=== PATIENT | female | born 1990 | race Caucasian/White ===

== ENCOUNTER → 2016-05-19 | Outpatient (CLI) | payer SELFPAY | LOC: MW.CHOBGYN 10:08 | PROVIDERS: ATTEND Obstetrics & Gynecology | DX: L29.8 Other pruritus (principal) | CPT/HCPCS: 87480; 87510; 87660 ==

== ENCOUNTER → 2016-05-28 | Outpatient (CLI) | payer SELFPAY | LOC: MW.CHOBGYN 14:18 | PROVIDERS: ATTEND Advanced Practice Midwife | DX: Z34.90 Encounter for supervision of normal pregnancy, unspecified, unspecified trimester (principal); L29.8 Other pruritus | CPT/HCPCS: 36415; 82950; 85027; 86850 ==

== ENCOUNTER → 2016-06-15 | Outpatient (CLI) | payer OTHER ==
--- NOTE | 2016-06-16 10:13 | US ---
EXAMINATION: Transabdominal obstetric ultrasound HISTORY: Supervision of normal COMPARISON: None TECHNIQUE: Grayscale, color Doppler, and spectral Doppler images obtained. FINDINGS: There is a single live intrauterine in a cephalic position. The heart rate is 153 bpm. Amniotic fluid index is normal. The cervical length measures at least 3 cm. The biparie selin diameter is 8.3 cm, head circumference is 29.6 cm, the abdominal circumference is 27.9 cm, and t he femoral length is 6.3 cm. This gives an estimated gestational age at 32 weeks and 6 days with an estimated date of delivery at 08/04/2016. weight is 1960 g. Overall the fetus is within the 46t h percentile. IMPRESSION: Single live intrauterine in the cephalic position.
== END ==
LOC: MW.US 14:53
PROVIDERS: ATTEND Advanced Practice Midwife
DX: Z34.03 Encounter for supervision of normal first pregnancy, third trimester (principal)
CPT/HCPCS: 76815-26; 76816

== ENCOUNTER → 2016-06-18 | Outpatient (CLI) | payer MEDICAID | LOC: MW.CHOBGYN 13:53 | PROVIDERS: ATTEND Advanced Practice Midwife | DX: O99.283 Endocrine, nutritional and metabolic diseases complicating pregnancy, third trimester (principal); E03.9 Hypothyroidism, unspecified | CPT/HCPCS: 36415; 80305; 81003; 84439; 84443 ==

== ENCOUNTER 2016-07-23 16:13 | Inpatient (IN) | payer OTHER, MEDICAID ==
[2016-07-23] MEDS ORDERED: Lactated Ringers 1,000 ML IV ONE (17:11)
[2016-07-23] MEDS ORDERED: Terbutaline 1 MG/ML SDV SUBCUT ONE (19:14)
[2016-07-23] MEDS: Lactated Ringers 1,000 ML IV SCH (23:29)
--- NOTE | 2016-07-23 23:30 | PCM.PREANE ---
Preanesthetic Assessment - Anesthesia/Transfusion/Family Hx Anesthesia History: Prior Anesthesia Without Reaction Family History of Anesthesia Reaction: No Transfusion History: No Prior Transfusion(s) - Review of Systems General: No Symptoms Pulmonary: No Symptoms Cardiovascular: No Symptoms Gastrointestinal: No symptoms Neurological: No Symptoms Other: Reports: None - Physical Assessment NPO Status Date: 07/24/16 NPO Status Time: 01:28 (cl liquids now) Height: 1.73 m Weight: 125.191 kg ASA Class: 3 Mental Status: Alert & Oriented x3 Airway Class: Mallampati = 2 Dentition: Reports: Normal Dentition Thyro-Mental Finger Breadths: 3 Mouth Opening Finger Breadths: 3 ROM/Head Extension: Full Lungs: Clear to auscultation, Normal respiratory effort Cardiovascular: Regular Rate, Regular Rhythm - Lab Values: Laboratory Last Values Urine Color YELLOW 07/23/16 16:20 Urine Appearance CLEAR 07/23/16 16:20 Urine pH 6.5 (5.0-8.0) 07/23/16 16:20 Ur Specific [place] 1.020 (1.001-1.035) 07/23/16 16:20 Urine Protein NEGATIVE mg/dL (NEGATIVE) 07/23/16 16:20 Urine Glucose (UA) NEGATIVE mg/dL (NEGATIVE) 07/23/16 16:20 Urine Ketones TRACE mg/dL (NEGATIVE) H 07/23/16 16:20 Urine Occult Blood NEGATIVE (NEGATIVE) 07/23/16 16:20 Urine Nitrite NEGATIVE (NEGATIVE) 07/23/16 16:20 Urine Bilirubin SMALL (NEGATIVE) H 07/23/16 16:20 Urine Ictotest NEGATIVE 07/23/16 16:20 Urine Urobilinogen 0.2 EU/dL (<2.0) 07/23/16 16:20 Ur Leukocyte Esterase NEGATIVE (NEGATIVE) 07/23/16 16:20 Urine RBC 0-1 (0-2/HPF) 07/23/16 16:20 Urine WBC 0-3 (0-5/HPF) 07/23/16 16:20 Ur Epithelial Cells FEW (NONE-FEW) 07/23/16 16:20 Urine Bacteria FEW (NEGATIVE) 07/23/16 16:20 - Allergies Allergies/Adverse Reactions: Allergies Allergy/AdvReac Type Severity Reaction Status Date / Time No Known Allergies Allergy Verified 05/31/15 20:38 - Blood Blood Available: Yes Product(s) Available: PRBC - Acknowledgements Anesthesia Type Planned: Epidural Pt an Appropriate Candidate for the Planned Anesthesia: Yes Alternatives and Risks of Anesthesia Discussed w Pt/Guardian: Yes Pt/Guardian Understands and Agrees with Anesthesia Plan: Yes PreAnesthesia Questionnaire Gastrointestinal History: Reports: Cholelithiasis, GERD 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: Other Musculoskeletal History: History of thoracic outlet syndrome, right upper rib removed about 2 yrs ago Endocrine/Metabolic History: Reports: Hypothyroidism Other Endocrine/Metabolic History: 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, no changes in thyroid medication since beginning of this - Infectious Disease History Infectious Disease History: Reports: Chicken Pox - Past Surgical History HEENT Surgical History: Reports: Naso-Sinus Surgery GI Surgical History: Reports: Cholecystectomy Endocrine Surgical History: Reports: Thyroidectomy Musculoskeletal Surgical History: Reports: Shoulder Surgery - SUBSTANCE USE Smoking Status *Q: Current Every Day Smoker Tobacco Use Within Last Twelve Months: Cigarettes Second Hand Smoke Exposure: Yes Recreational Drug Use History: No - CURRENT (IN HOUSE) MEDS Current Meds: Current Medications Discontinued Medications Lactated Ringer's (Ringers, Lactated) 1,000 mls @ 500 mls/hr IV .BOLUS ONE Stop: 07/23/16 19:10 Last Admin: 07/23/16 17:26 Dose: 500 mls/hr Terbutaline Sulfate (Brethine) 0.25 mg SUBCUT ONETIME ONE Stop: 07/23/16 19:15 Last Admin: 07/23/16 19:23 Dose: 0.25 mg - Free Text/Narrative Note: Labor Analgesia/Epidural Procedure start date: 07/25/16 time:57 Attending provider aware Chart reviewed Permit signed Labs reviewed VS/ FHR reviewed Pt identified/ID band Pt assessed Risks/Benefits discussed and accepted Monitors in place (BP, HR, SPO2) Patient, Site, Procedure Verification, Pause. Pain "6/10" Fluid bolus infused (fluid type and amount): 1500 ml LR infused with ongoing infusion Position: Sitting @0100 Prep: Betadine X 3 Sterile Drape Intradermal Wheal: 3 ml 1% Lidocaine Regional placement level: L4-5 Needle: 17 g Tuohy Approach: Midline Technique: KIET glass syringe w 3 ml Sterile water KIET needle depth: 8 cm Paresthesia: None Fluid Obtained: None Catheter insertion time:104 Catheter depth at skin: 20 cm Test Dose Time: 104 RX: 3 ml 1.5% lidocaine with 1:200,000 epi Response: Negative Loading dose Time:[id number] RX: 100 mcg fentanyl followed by 10 ml 0.2% ropivacaine in 2-3 ml increments over 10 minutes Pt position: semi fowlers with JOHN Continuous infusion Start Time: 119 RX: 100 ml 0.2% ropivacaine with 2 mcg/ml fentanyl Continuous infusion rate: 9 ml/hr ICEBOX WORKER bolus option: 5 ml every 15 min Pt response Post procedure pain level: "0/10" VS and FHR monitored in unit post placement (See OB traceview for documentation. ) Procedure end date: 07/25/16 time: 014
[2016-07-23] MEDS ORDERED: Water For Irrigation,Sterile 1,000 ML Container IRR PRN (23:31)
[2016-07-23] MEDS ORDERED: Sodium Chloride 0.9% 10 ML Syringe FLUSH PRN (23:31)
[2016-07-23] MEDS ORDERED: Butorphanol 1 MG/ML SDV IVPUSH PRN (23:31)
[2016-07-23] MEDS ORDERED: Sodium Chloride 0.9% 2.5 ML Syringe FLUSH PRN (23:31)
[2016-07-23] MEDS ORDERED: Methylergonovine 0.2 MG/1 ML Amp IM PRN (23:31)
[2016-07-23] MEDS ORDERED: Misoprostol 200 MCG Tab PO PRN (23:31)
[2016-07-23] MEDS ORDERED: Nalbuphine 10 MG/1 ML Vial IVPUSH PRN (23:31)
[2016-07-23] MEDS ORDERED: Lidocaine 1% 50 ML MDV INJECT PRN (23:31)
[2016-07-23] MEDS ORDERED: Carboprost Tromethamine 250 MCG/1 ML Amp IM PRN (23:31)
[2016-07-23] MEDS ORDERED: Oxytocin/Lactated Ringers 30 UNIT/500 ML BAG IV SCH (23:45)
--- NOTE | 2016-07-24 | PCM.LDHP ---
L&D History of Present Illness - General Date of Service: 07/23/16 Admit Problem/Dx: Patient Status Order with Admit Dx/Problem 07/23/16 16:39 Patient Status [ADT] Routine 07/23/16 23:31 Patient Status [ADT] Routine Admission Diagnosis/Problem Admission Diagnosis/Problem Source of Information: Patient History Limitations: Reports: No Limitations - History of Present Illness Improves with: Reports: None Worsens with: Reports: None Associated Symptoms: Reports: N - Related Data Allergies/Adverse Reactions: Allergies Allergy/AdvReac Type Severity Reaction Status Date / Time No Known Allergies Allergy Verified 05/31/15 20:38 Past Medical History Gastrointestinal History: Reports: Cholelithiasis, GERD 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: Endocrine/Metabolic History: Reports: Hypothyroidism Other Endocrine/Metabolic History: 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 - Infectious Disease History Infectious Disease History: Reports: Chicken Pox - Past Surgical History HEENT Surgical History: Reports: Naso-Sinus Surgery GI Surgical History: Reports: Cholecystectomy Endocrine Surgical History: Reports: Thyroidectomy Musculoskeletal Surgical History: Reports: Shoulder Surgery Social & Family History - Family History GI: Reports: GERD Neurological: Reports: CVA Endocrine/Metabolic: Reports: Hypothyroidism Other Endocrine/Metabolic Family History: mother thyroidectomy for graves disease Oncologic: Reports: Renal - Tobacco Use Smoking Status *Q: Current Every Day Smoker Years of Tobacco use: 8 Packs/Tins Daily: 0.5 Second Hand Smoke Exposure: Yes - Recreational Drug Use Recreational Drug Use: No H&P Review of Systems - Review of Systems: Review Of Systems: See Below General: Reports: No Symptoms HEENT: Reports: No Symptoms Pulmonary: Reports: No Symptoms Cardiovascular: Reports: No Symptoms Gastrointestinal: Reports: No Symptoms Genitourinary: Reports: No Symptoms Musculoskeletal: Reports: No Symptoms Skin: Reports: No Symptoms Psychiatric: Reports: No Symptoms Neurological: Reports: No Symptoms Hematologic/Lymphatic: Reports: No Symptoms Immunologic: Reports: No Symptoms L&D Exam - Exam Exam: See Below - Vital Signs Weight: 125.191 kg - OB Specific Fundal Height In cm: 37 Contraction Intensity: Mild to Moderate Movement: Active Presentation: Vertex - Garrett Score Garrett Score Consistency: Soft Garrett Score Effacement: 51-70% Garrett Score Dilation: > 5 cm Garrett Score 's Station: -1 ,0 - Patient Data Lab Results Last 24 hrs: Laboratory Results - last 24 hr 07/23/16 Range/Units 16:20 Urine Color YELLOW Urine Appearance CLEAR Urine pH 6.5 (5.0-8.0) Ur Specific [place] 1.020 (1.001-1.035) Urine Protein NEGATIVE (NEGATIVE) mg/dL Urine Glucose (UA) NEGATIVE (NEGATIVE) mg/dL Urine Ketones TRACE H (NEGATIVE) mg/dL Urine Occult Blood NEGATIVE (NEGATIVE) Urine Nitrite NEGATIVE (NEGATIVE) Urine Bilirubin SMALL H (NEGATIVE) Urine Ictotest NEGATIVE Urine Urobilinogen 0.2 (<2.0) EU/dL Ur Leukocyte Esterase NEGATIVE (NEGATIVE) Urine RBC 0-1 (0-2/HPF) Urine WBC 0-3 (0-5/HPF) Ur Epithelial Cells FEW (NONE-FEW) Urine Bacteria FEW (NEGATIVE) Problem List Initiated/Reviewed/Updated: Yes Orders Last 24hrs: Active Orders 24 hr Category Date Time Status Patient Status [ADT] Routine ADT 07/23/16 16:39 Active Patient Status [ADT] Routine ADT 07/23/16 23:31 Active Heart Tones [RC] CONTINUOUS Care 07/23/16 23:31 Active Non Stress Test [RC] PER UNIT ROUTINE Care 07/23/16 16:39 Active Non Stress Test [RC] PER UNIT ROUTINE Care 07/23/16 23:31 Active May Shower [RC] ASDIRECTED Care 07/23/16 23:31 Active Notify Provider [RC] PRN Care 07/23/16 23:31 Active Up ad Hillary [RC] ASDIRECTED Care 07/23/16 16:39 Active Up ad Hillary [RC] ASDIRECTED Care 07/23/16 23:31 Active Vaginal Exam [RC] Click To Edit Care 07/23/16 16:39 Active Vaginal Exam [RC] PRN Care 07/23/16 23:31 Active Vital Signs [RC] PER UNIT ROUTINE Care 07/23/16 16:39 Active Vital Signs [RC] PER UNIT ROUTINE Care 07/23/16 23:31 Active CBC W/O DIFF,HEMOGRAM [HEME] Routine Lab 07/23/16 23:31 Ordered TYPE AND SCREEN [BBK] Routine Lab 07/23/16 23:31 Ordered Butorphanol [Stadol] Med 07/23/16 23:31 Active 1 mg IVPUSH Q1H PRN Carboprost Tromethamine [Hemabate DS] Med 07/23/16 23:31 Active 250 mcg IM ASDIRECTED PRN Lactated Ringers [Ringers, Lactated] 1,000 ml Med 07/23/16 23:45 Active IV ASDIRECTED Lidocaine 1% [Xylocaine 1%] Med 07/23/16 23:31 Active 50 ml INJECT .ONCE PRN Methylergonovine [Methergine] Med 07/23/16 23:31 Active 0.2 mg IM ASDIRECTED PRN Misoprostol [Cytotec] Med 07/23/16 23:31 Active 200 mcg PO .ONCE PRN Nalbuphine [Nubain] Med 07/23/16 23:31 Active 10 mg IVPUSH Q1H PRN Oxytocin/Lactated Ringers [Pitocin in LR 30 Units/500 Med 07/23/16 23:45 Active ML] 30 unit in 500 ml IV TITRATE Sodium Chloride 0.9% [Saline Flush] Med 07/23/16 23:31 Active 10 ml FLUSH ASDIRECTED PRN Sodium Chloride 0.9% [Saline Flush] Med 07/23/16 23:31 Active 2.5 ml FLUSH ASDIRECTED PRN Water For Irrigation,Sterile [Sterile Water for Med 07/23/16 23:31 Active Irrigation] 1,000 ml IRR ASDIRECTED PRN Scalp Electrode [WOMSER] Per Unit Routine Oth 07/23/16 23:31 Ordered Peripheral IV Insertion Adult [OM.PC] Routine Oth 07/23/16 23:31 Ordered Resuscitation Status Routine Resus Stat 07/23/16 16:39 Ordered Medication Orders Butorphanol Tartrate (Stadol) 1 mg IVPUSH Q1H PRN PRN Reason: Pain Carboprost Tromethamine (Hemabate Ds) 250 mcg IM ASDIRECTED PRN PRN Reason: Post Hemorrhage Lactated Ringer's (Ringers, Lactated) 1,000 mls @ 150 mls/hr IV ASDIRECTED JADE Oxytocin/Lactated Ringer's (Pitocin In Lr 30 Units/500 Ml) 30 unit in 500 mls @ 999 mls/hr IV TITRATE JADE PRN Reason: 999 MUNITS/MIN Stop: 07/24/16 00:16 Lidocaine HCl (Xylocaine 1%) 50 ml INJECT .ONCE PRN PRN Reason: Laceration repair Methylergonovine Maleate (Methergine) 0.2 mg IM ASDIRECTED PRN PRN Reason: Post Hemorrhage Misoprostol (Cytotec) 200 mcg PO .ONCE PRN PRN Reason: Post Hemorrhage Nalbuphine HCl (Nubain) 10 mg IVPUSH Q1H PRN PRN Reason: Pain (severe 7-10) Stop: 07/24/16 01:32 Sodium Chloride (Saline Flush) 10 ml FLUSH ASDIRECTED PRN PRN Reason: Keep Vein Open Sodium Chloride (Saline Flush) 2.5 ml FLUSH ASDIRECTED PRN PRN Reason: Keep Vein Open Sterile Water (Sterile Water For Irrigation) 1,000 ml IRR ASDIRECTED PRN PRN Reason: delivery Assessment/Plan Comment:: IUP 37 wks in early labor
[2016-07-24] MEDS: Lactated Ringers 1,000 ML IV SCH ×3 (00:34→06:03)
[2016-07-24] MEDS ORDERED: Ropivacaine 0.2% 2 MG/ML 20 ML SDV ONE (00:51)
[2016-07-24] MEDS ORDERED: fentaNYL 100 MCG/2 ML SDV ONE (00:51)
--- NOTE | 2016-07-24 08:54 | PCM.PNLD ---
Labor Progress Note - VS & Meds Active Medications: Current Medications Butorphanol Tartrate (Stadol) 1 mg IVPUSH Q1H PRN PRN Reason: Pain Carboprost Tromethamine (Hemabate Ds) 250 mcg IM ASDIRECTED PRN PRN Reason: Post Hemorrhage Lactated Ringer's (Ringers, Lactated) 1,000 mls @ 150 mls/hr IV ASDIRECTED [facility] Last Admin: 07/24/16 06:03 Dose: 125 mls/hr Lidocaine HCl (Xylocaine 1%) 50 ml INJECT .ONCE PRN PRN Reason: Laceration repair Methylergonovine Maleate (Methergine) 0.2 mg IM ASDIRECTED PRN PRN Reason: Post Hemorrhage Misoprostol (Cytotec) 200 mcg PO .ONCE PRN PRN Reason: Post Hemorrhage Sodium Chloride (Saline Flush) 10 ml FLUSH ASDIRECTED PRN PRN Reason: Keep Vein Open Sodium Chloride (Saline Flush) 2.5 ml FLUSH ASDIRECTED PRN PRN Reason: Keep Vein Open Sterile Water (Sterile Water For Irrigation) 1,000 ml IRR ASDIRECTED PRN PRN Reason: delivery Discontinued Medications Fentanyl (Sublimaze) Confirm Administered Dose 100 mcg .ROUTE .STK-MED ONE Stop: 07/24/16 00:52 Lactated Ringer's (Ringers, Lactated) 1,000 mls @ 500 mls/hr IV .BOLUS ONE Stop: 07/23/16 19:10 Last Admin: 07/23/16 17:26 Dose: 500 mls/hr Oxytocin/Lactated Ringer's (Pitocin In Lr 30 Units/500 Ml) 30 unit in 500 mls @ 999 mls/hr IV TITRATE [facility] PRN Reason: 999 MUNITS/MIN Stop: 07/24/16 00:16 Ropivacaine/Fentanyl/NS (Fentanyl 2 Mcg-Ropiv 0.2%-Ns) Confirm Administered Dose 100 mls @ as directed .ROUTE .STK-MED ONE Stop: 07/24/16 00:52 Nalbuphine HCl (Nubain) 10 mg IVPUSH Q1H PRN PRN Reason: Pain (severe 7-10) Stop: 07/24/16 01:32 Ropivacaine (Naropin 0.2%) Confirm Administered Dose 20 ml .ROUTE .STK-MED ONE Stop: 07/24/16 00:52 Terbutaline Sulfate (Brethine) 0.25 mg SUBCUT ONETIME ONE Stop: 07/23/16 19:15 Last Admin: 07/23/16 19:23 Dose: 0.25 mg - Uterine Contractions Contraction Intensity: Mild to Moderate Uterine Resting Tone: Soft - Monitoring Monitor Mode: External Ultrasound Heart Rate (FHR) Variability: Moderate (6-25 bmp) Accelerations: Present, 15x15 Decelerations: None Strip Review: Category I - Vaginal Exam Dilation (cm): 5-6 Effacement (Percent): 90 Station: -3 Cervical Position: Anterior Sterile Vaginal Exam Performed By: Vernon Whiting - Labor Progress (Free Text) Labor Progress: AEOM by me. we will watch contractions and re do Vaginal exam if there is no segnifect change we will start the pt on Pitocin as per protocol.
[2016-07-24] MEDS ORDERED: Oxytocin/Lactated Ringers 30 UNIT/500 ML BAG ONE (10:13)
[2016-07-24] MEDS ORDERED: Ropivacaine HCl/PF 100 ML ONE (10:51)
[2016-07-24] MEDS ORDERED: Lanolin 100% Cream 7 GM Tube TOP PRN (11:23)
[2016-07-24] MEDS ORDERED: Ibuprofen 400 MG Tab PO PRN (11:23)
[2016-07-24] MEDS ORDERED: Benzocaine/Menthol 20%-0.5% Spray 78 GM Cannister TOP PRN (11:23)
[2016-07-24] MEDS ORDERED: Bisacodyl 10 MG Supp RECTAL PRN (11:23)
[2016-07-24] MEDS ORDERED: Acetaminophen 500 MG Tab PO PRN ×2 (11:23)
[2016-07-24] MEDS ORDERED: Witch Hazel Medicated Pads 40/Jar TOP PRN (11:23)
[2016-07-24] MEDS ORDERED: Docusate Sodium 100 MG Cap PO PRN (11:23)
[2016-07-24] MEDS: oxyCODONE 5 MG Tab PO PRN ×2 (12:30→19:37)
--- NOTE | 2016-07-24 14:38 | OR ---
SURGEON: Vernon Whiting MD DATE OF PROCEDURE: 07/24/2016 Ms. Louise is 25 years old patient. She is para 1-0-0-1. She is 37 weeks today. She is followed up in our clinic primarily by our nurse senior executive compensation analyst, Crystal Jo. She had no complications and her GBS status is negative. The patient is admitted last night into Labor and Delivery in early active labor. At the time of admission, she was 3-4 cm and 90 vertex and -3. The patient has continued to progress and she is at 5-6 cm complete 90% vertex. The patient has had epidural anesthesia for labor analgesia. She has continued to progress slowly. This morning, I examined the patient, and she was 7 cm complete vertex, -1 station with bulging bag of water. She had an artificial rupture of the membrane by me and the patient has progressed without any aid on her own and she was able to accomplish normal spontaneous vaginal delivery of a female fetus in an OP position. The score was reported to be 8 and 9. The weight is not available. The placenta delivered spontaneous, complete, and intact without any problem. There was no need for episiotomy and there was no perineal or labial laceration. Estimated blood loss in this is 250 to 300 mL. heart rate was category 1 through the entire process of labor. There was no complication in this . DONAVON / LEONARDO /[id number]
[2016-07-24] MEDS: Ibuprofen 800 MG Tab PO PRN ×2 (15:46→23:00)
[2016-07-25] MEDS: oxyCODONE 5 MG Tab PO PRN ×2 (00:24→05:17)
[2016-07-25] MEDS: Ibuprofen 800 MG Tab PO PRN ×2 (05:17→11:30)
[2016-07-25 08:35] VITALS: BP 128/67
--- NOTE | 2016-07-25 10:42 | PCM.PNPP ---
- General Info Date of Service: 07/25/16 Functional Status: Reports: pain controlled - Review of Systems General: Reports: No Symptoms HEENT: Reports: no symptoms Pulmonary: Reports: no symptoms Cardiovascular: Reports: No Symptoms Gastrointestinal: Reports: No symptoms Genitourinary: Reports: no symptoms Musculoskeletal: Reports: no symptoms Skin: Reports: no symptoms Neurological: Reports: No Symptoms Psychiatric: Reports: no symptoms - General Info Date of Service: 07/25/16 - Patient Data Vital Signs - most recent: Last Vital Signs Temp 36.6 C 07/25/16 08:00 Pulse 68 07/25/16 08:00 Resp 16 07/25/16 08:00 BP 128/67 07/25/16 08:00 Pulse Ox 96 07/25/16 08:00 Weight - most recent: 125.191 kg Lab Results - last 24 hrs: Laboratory Results - last 24 hr 07/25/16 Range/Units 07:05 Hgb 9.2 L (12.0-16.0) g/dL Hct 27.3 L (36.0-46.0) % Med Orders - Current: Current Medications Acetaminophen (Tylenol Extra Strength) 500 mg PO Q4H PRN PRN Reason: Pain Last Admin: 07/24/16 19:36 Dose: 500 mg Acetaminophen (Tylenol Extra Strength) 1,000 mg PO Q4H PRN PRN Reason: Pain Last Admin: 07/24/16 12:29 Dose: 1,000 mg Benzocaine/Menthol (Dermoplast Pain Relief 20%-0.5% Perry) 78 gm TOP ASDIRECTED PRN PRN Reason: Perineal Comfort Measure Bisacodyl (Dulcolax) 10 mg RECTAL .ONCE PRN PRN Reason: Constipation Butorphanol Tartrate (Stadol) 1 mg IVPUSH Q1H PRN PRN Reason: Pain Carboprost Tromethamine (Hemabate Ds) 250 mcg IM ASDIRECTED PRN PRN Reason: Post Hemorrhage Docusate Sodium (Colace) 100 mg PO BID PRN PRN Reason: Constipation Last Admin: 07/25/16 08:40 Dose: 100 mg Emollient Ointment (Lansinoh Hpa) 0 gm TOP ASDIRECTED PRN PRN Reason: Sore Nipples Last Admin: 07/24/16 12:29 Dose: 1 applic Lactated Ringer's (Ringers, Lactated) 1,000 mls @ 150 mls/hr IV ASDIRECTED JADE Last Admin: 07/24/16 06:03 Dose: 125 mls/hr Ibuprofen (Motrin) 400 mg PO Q4H PRN PRN Reason: Pain Ibuprofen (Motrin) 800 mg PO Q6H PRN PRN Reason: Pain Last Admin: 07/25/16 05:17 Dose: 800 mg Lidocaine HCl (Xylocaine 1%) 50 ml INJECT .ONCE PRN PRN Reason: Laceration repair Methylergonovine Maleate (Methergine) 0.2 mg IM ASDIRECTED PRN PRN Reason: Post Hemorrhage Misoprostol (Cytotec) 200 mcg PO .ONCE PRN PRN Reason: Post Hemorrhage Oxycodone HCl (Oxycodone) 5 mg PO Q2H PRN PRN Reason: Pain Last Admin: 07/25/16 05:17 Dose: 5 mg Sodium Chloride (Saline Flush) 10 ml FLUSH ASDIRECTED PRN PRN Reason: Keep Vein Open Sodium Chloride (Saline Flush) 2.5 ml FLUSH ASDIRECTED PRN PRN Reason: Keep Vein Open Sterile Water (Sterile Water For Irrigation) 1,000 ml IRR ASDIRECTED PRN PRN Reason: delivery Witch Ratna (Tucks) 1 pad TOP ASDIRECTED PRN PRN Reason: comfort care Discontinued Medications Fentanyl (Sublimaze) Confirm Administered Dose 100 mcg .ROUTE .STK-MED ONE Stop: 07/24/16 00:52 Last Admin: 07/24/16 23:58 Dose: Not Given Lactated Ringer's (Ringers, Lactated) 1,000 mls @ 500 mls/hr IV .BOLUS ONE Stop: 07/23/16 19:10 Last Admin: 07/23/16 17:26 Dose: 500 mls/hr Oxytocin/Lactated Ringer's (Pitocin In Lr 30 Units/500 Ml) 30 unit in 500 mls @ 999 mls/hr IV TITRATE [facility] PRN Reason: 999 MUNITS/MIN Stop: 07/24/16 00:16 Last Admin: 07/24/16 11:20 Dose: 999 munits/min, 999 mls/hr Ropivacaine/Fentanyl/NS (Fentanyl 2 Mcg-Ropiv 0.2%-Ns) Confirm Administered Dose 100 mls @ as directed .ROUTE .STK-MED ONE Stop: 07/24/16 00:52 Last Admin: 07/24/16 23:58 Dose: Not Given Oxytocin/Lactated Ringer's (Pitocin In Lr 30 Units/500 Ml) Confirm Administered Dose 30 unit in 500 mls @ as directed .ROUTE .STK-MED ONE Stop: 07/24/16 10:14 Last Admin: 07/24/16 23:58 Dose: Not Given Ropivacaine (Naropin 0.2%) Confirm Administered Dose 100 mls @ as directed .ROUTE .STK-MED ONE Stop: 07/24/16 10:52 Last Admin: 07/24/16 23:58 Dose: Not Given Nalbuphine HCl (Nubain) 10 mg IVPUSH Q1H PRN PRN Reason: Pain (severe 7-10) Stop: 07/24/16 01:32 Ropivacaine (Naropin 0.2%) Confirm Administered Dose 20 ml .ROUTE .STK-MED ONE Stop: 07/24/16 00:52 Last Admin: 07/24/16 23:58 Dose: Not Given Terbutaline Sulfate (Brethine) 0.25 mg SUBCUT ONETIME ONE Stop: 07/23/16 19:15 Last Admin: 07/23/16 19:23 Dose: 0.25 mg - Interaction Disposition, : in Room with Family Interaction: Holding Infant Feeding: Attempted ; Nursed Fair/Poor Support Person: - Recovery Exam Fundal Tone: Firm Fundal Level: 2 Fingerbreadths Below Umbilicus Fundal Placement: Midline Lochia Amount: Scant Lochia Color: Rubra/Red Perineum Description: Intact, Minimal Bruising/Swelling Bladder Status: Voiding Urinary Elimination: Voided - Exam General: alert, oriented HEENT: Pupils equal Neck: supple Lungs: Clear to auscultation, Normal respiratory effort Cardiovascular: Regular Rate, Regular Rhythm Abdomen: bowel sounds present, soft, no tenderness, no distension Extremities: no edema Skin: warm, dry, intact Wound/Incisions: healing well Neurological: no new focal deficit Psy/Mental Status: alert, normal affect, normal mood - Problem List Review Problem List Initiated/Reviewed/Updated: Yes - My Orders Last 24 Hours: My Active Orders 07/24/16 11:23 Patient Status [ADT] Routine May Shower [RC] ASDIRECTED Up ad Hillary [RC] ASDIRECTED Vital Signs [RC] PER UNIT ROUTINE Acetaminophen [Tylenol Extra Strength] 1,000 mg PO Q4H PRN Acetaminophen [Tylenol Extra Strength] 500 mg PO Q4H PRN Benzocaine/Menthol [Dermoplast Pain Relief 20%-0.5% Perry] 78 gm TOP ASDIRECTED PRN Bisacodyl [Dulcolax] 10 mg RECTAL .ONCE PRN Docusate Sodium [Colace] 100 mg PO BID PRN Ibuprofen [Motrin] 400 mg PO Q4H PRN Ibuprofen [Motrin] 800 mg PO Q6H PRN Lanolin [Lansinoh HPA] See Dose Instructions TOP ASDIRECTED PRN Witch Ratna [Tucks] 1 pad TOP ASDIRECTED PRN oxyCODONE 5 mg PO Q2H PRN Assess Lochia [WOMSER] Per Unit Routine Assess Uterine Involution [WOMSER] Per Unit Routine Peripheral IV Discontinue [OM.PC] Routine - Plan Plan:: IUP 37 wks in early labor
== END 2016-07-25 14:20 | disposition home or self-care (01) | DRG 775 ==
LOC: MW.OBCHECK 16:13 → MW.OB 16:17 → MW.OBCHECK 23:31 → MW.OB 23:31 → OBSVTOIN 07-24 11:16
PROVIDERS: ADMIT Obstetrics & Gynecology; ATTEND Obstetrics & Gynecology
PROC: 10E0XZZ Delivery of Products of Conception, External Approach (ICD-10-PCS; principal; 2016-07-24)
PROC: 10907ZC Drainage of Amniotic Fluid, Therapeutic from Products of Conception, Via Natural or Artificial Opening (ICD-10-PCS; 2016-07-24)
DX: O80 Encounter for full-term uncomplicated delivery (principal); Z3A.37 37 weeks gestation of pregnancy; Z37.0 Single live birth
CPT/HCPCS: 01967; 36415; 59025; 81001; 84112; 85014; 85018; 85027; 86850; 86900; 86901; A9270-GY; J3105; J7120

== ENCOUNTER 2018-07-02 18:12 | Emergency (ER) | payer MEDICAID, OTHER ==
--- NOTE | 2018-07-02 18:39 | EDM.PDOC ---
ED HPI GENERAL MEDICAL PROBLEM - General Chief Complaint: Chest Pain Stated Complaint: CHEST PAIN Time Seen by Provider: 07/02/18 18:29 - History of Present Illness INITIAL COMMENTS - FREE TEXT/NARRATIVE: HISTORY AND PHYSICAL: History of present illness: Patient's 27-year-old white female presents with a concern of left-sided chest pain is constant and described present for the last 2-3 days his nose associates shortness of breath palpitations diaphoresis she denies history of DVT PE or risk factors she denies drugs Review of systems: As per history of present illness and below otherwise all systems reviewed and negative. Past medical history: As per history of present illness and as reviewed below otherwise noncontributory. Surgical history: As per history of present illness and as reviewed below otherwise noncontributory. Social history: No reported history of drug or alcohol abuse. Family history: As per history of present illness and as reviewed below otherwise noncontributory. Physical exam: HEENT: Atraumatic, normocephalic, pupils reactive, negative for conjunctival pallor or scleral icterus, mucous membranes moist, throat clear, neck supple, nontender, trachea midline. Lungs: Clear to auscultation, breath sounds equal bilaterally, chest nontender. Heart: S1S2, regular, negative for clicks, rubs, or JVD. Abdomen: Soft, nondistended, nontender. Negative for masses or hepatosplenomegaly. Negative for costovertebral tenderness. Pelvis: Stable nontender. Genitourinary: Deferred. Rectal: Deferred. Extremities: Atraumatic, negative for cords or calf pain. Neurovascular unremarkable. Neuro: Awake, alert, oriented. Cranial nerves II through XII unremarkable. Cerebellum unremarkable. Motor and sensory unremarkable throughout. Exam nonfocal. Diagnostics: Chest x-ray EKG Therapeutics: None Impression: #1 atypical chest pain Definitive disposition and diagnosis as appropriate pending reevaluation and review of above. Left Chest Pain Score (Numeric/FACES): 5 - Related Data Allergies Allergy/AdvReac Type Severity Reaction Status Date / Time No Known Allergies Allergy Verified 05/31/15 20:38 Home Meds: Home Meds Cyclobenzaprine [Flexeril] 10 mg PO DAILY 07/02/18 [History] Esomeprazole Magnesium [Nexium 24Hr] 1 tab PO DAILY 07/02/18 [History] Gabapentin [Neurontin] 300 mg PO DAILY 07/02/18 [History] Levothyroxine 125 mcg PO DAILY 07/02/18 [History] Past Medical History Gastrointestinal History: Reports: Cholelithiasis, GERD [employer] History: Reports: Other Musculoskeletal History: History of thoracic outlet syndrome, right upper rib removed about 2 yrs ago Endocrine/Metabolic History: Reports: Hypothyroidism Other Endocrine/Metabolic History: 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, no changes in thyroid medication since beginning of this - Infectious Disease History Infectious Disease History: Reports: Chicken Pox - Past Surgical History HEENT Surgical History: Reports: Naso-Sinus Surgery GI Surgical History: Reports: Cholecystectomy Social & Family History - Family History GI: Reports: GERD Neurological: Reports: CVA Endocrine/Metabolic: Reports: Hypothyroidism Other Endocrine/Metabolic Family History: mother thyroidectomy for graves disease Oncologic: Reports: Renal - Tobacco Use Smoking Status *Q: Current Every Day Smoker Years of Tobacco use: 10 Packs/Tins Daily: 0.7 - Caffeine Use Caffeine Use: Reports: Soda - Recreational Drug Use Recreational Drug Use: No ED ROS GENERAL - Review of Systems Review Of Systems: ROS reveals no pertinent complaints other than HPI. ED EXAM, GENERAL - Physical Exam Exam: See Below (See dictation) Course - Vital Signs Last Recorded V/S: Last Vital Signs Temp 36.7 C 07/02/18 18:18 Pulse 87 07/02/18 18:18 Resp 18 07/02/18 18:18 BP 116/81 07/02/18 18:18 Pulse Ox 18 L 07/02/18 18:18 - Orders/Labs/Meds Orders: Active Orders 24 hr Category Date Time Status EKG 12 Lead [EKG Documentation Completion] [RC] STAT Care 07/02/18 18:19 Active EKG Documentation Completion [RC] STAT Care 07/02/18 18:35 Active Departure - Departure Time of Disposition: 19:51 Disposition: Home, Self-Care 01 Condition: Good Clinical Impression: Atypical chest pain - Discharge Information Instructions: Nonspecific Chest Pain Referrals: PCP,None [Primary Care Provider] - Forms: ED Department Discharge Additional Instructions: The following information is given to patients seen in the emergency department who are being discharged to home. This information is to outline your options for follow-up care. We provide all patients seen in our emergency department with a follow-up referral. The need for follow-up, as well as the timing and circumstances, are variable depending upon the specifics of your emergency department visit. If you don't have a primary care physician on staff, we will provide you with a referral. We always advise you to contact your personal physician following an emergency department visit to inform them of the circumstance of the visit and for follow-up with them and/or the need for any referrals to a consulting specialist. The emergency department will also refer you to a specialist when appropriate. This referral assures that you have the opportunity for followup care with a specialist. All of these measure are taken in an effort to provide you with optimal care, which includes your followup. Under all circumstances we always encourage you to contact your private physician who remains a resource for coordinating your care. When calling for followup care, please make the office aware that this follow-up is from your recent emergency room visit. If for any reason you are refused follow-up, please contact the [facility] emergency department at and asked to speak to the emergency department charge nurse Juliana/Stefan as directed follow-up primary medical doctor return as needed as discussed [] - My Orders Last 24 Hours: My Active Orders 07/02/18 18:19 EKG 12 Lead [EKG Documentation Completion] [RC] STAT 07/02/18 18:35 EKG Documentation Completion [RC] STAT - Assessment/Plan Last 24 Hours: My Active Orders 07/02/18 18:19 EKG 12 Lead [EKG Documentation Completion] [RC] STAT 07/02/18 18:35 EKG Documentation Completion [RC] STAT
--- NOTE | 2018-07-02 19:32 | CR ---
INDICATION: pain/sob COMPARISON: None available. FINDINGS: Single portable AP view of the chest demonstrates adequate inflation of the lungs. No focal airspace consolidation, pneumothorax or effusion. Cardiomediastinal silhouette is unremarkable for an AP view. Surgical clips in the lower neck. Osseous structures are unremarkable. IMPRESSION: Negative AP view of the chest. Dictated by Klaus Carrillo MD @ 07/02/2018 7:30:12 PM Dictated by: Klaus Carrillo MD @ 07/02/2018 19:30:19 (Electronically Signed)
[2018-07-02 20:51] VITALS: BP 132/80
== END 2018-07-02 19:57 | disposition home or self-care (01) ==
LOC: MW.ED 18:12
DX: R07.89 Other chest pain (principal); K21.9 Gastro-esophageal reflux disease without esophagitis; E03.9 Hypothyroidism, unspecified; F17.210 Nicotine dependence, cigarettes, uncomplicated; Z79.899 Other long term (current) drug therapy
CPT/HCPCS: 71045; 71045-26; 93005; 99282; 99285-25